=== PATIENT | female | born 1955 | race Caucasian/White ===

== ENCOUNTER → 2024-05-11 | Outpatient (CLI) | payer MEDICARE, OTHER ==
[2024-05-11 12:41] LABS: Microalb/Creat Ratio UR, Rand 9.174 mg/g (0.000-30.000); Microalbumin, Random Urine 11.1 mg/L (0.000-20.000)
== END ==
LOC: LAB SHORT 10:30
PROVIDERS: Physician Assistant
DX: E11.69 Type 2 diabetes mellitus with other specified complication (principal)
CPT/HCPCS: 82043; 82570